=== PATIENT | female | born 1960 | race Caucasian/White ===

== ENCOUNTER 2023-08-07 15:40 | Emergency (ER) | payer OTHER, SELFPAY ==
[2023-08-07 15:41] VITALS: BP 201/110
[2023-08-07] MEDS: MOTRIN 600 MG PO (17:49)
[2023-08-07 18:12] LABS: % Eosinophils 3.9 % (0-6); % Immature Granulocytes 0.7 % (0-0.5); % Lymphocytes 21.1 % (20.5-51.1); % Monocytes 8.5 % (1.7-9.3); % Neutrophils 64.8 % (42.2-75.2); Absolute Basophils 0.1 10^3/uL (0-0.2); Absolute Eosinophils 0.3 10^3/uL (0-0.7); Absolute Immature Granulocytes 0.1 10^3/uL (0-0.05); Absolute Lymphocytes 1.4 10^3/uL (1.2-3.4); Absolute Monocytes 0.6 10^3/uL (0.1-0.6); Absolute Neutrophils 4.4 10^3/uL (1.4-6.5); Hematocrit 36.3 % (37.0-47.0); Hemoglobin 13.5 g/dL (12.0-16.0); Mean Corp Hgb Conc. 37.2 g/dL (33.0-37.0); Mean Corpuscular Hgb 33.5 pg (27.0-31.0); Mean Corpuscular Volume 90.1 fL (81.0-99.0); Nucleated Red Blood Cells % 0 %; Red Blood Cell Count 4.03 10^6/uL (4.20-5.40); Red Cell Dist. Width 12.5 % (11.5-14.5); White Blood Cell Count 6.7 10^3/uL (4.8-10.8)
[2023-08-07 18:17] VITALS: BP 168/100
[2023-08-07 18:20] LABS: ALT (SGPT) 15 U/L (0-35); AST (SGOT) 28 U/L (14-36); Albumin 4.5 g/dl (3.5-5.0); Alkaline Phosphatase 107 U/L (38-126); Blood Urea Nitrogen 19 mg/dl (7-17); Calcium 9.8 mg/dl (8.4-10.2); Carbon Dioxide 22 mmol/L (22-30); Chloride 103 mmol/L (98-107); Glucose 119 mg/dl (70-99); Potassium 3.9 mmol/L (3.5-5.1); Sodium 136 mmol/L (135-145); Total Bilirubin 0.6 mg/dl (0.2-1.3); Total Protein 7.3 g/dl (6.3-8.2); eGFR > 60.00
[2023-08-07 18:28] LABS: Mean Platelet Volume 9.4 fL (7.4-10.4); Platelet Count 247 10^3/uL (130-400)
[2023-08-07] MEDS: NORVASC 5 MG PO (18:33)
[2023-08-07 19:11] VITALS: BP 169/97
--- NOTE | 2023-08-07 20:08 | ED.GENMED ---
History of Present Illness
General
Chief Complaint: Blood Pressure Problem
Source: patient
Exam Limitations: none
Time Seen by Provider: 08/07/23 17:26
Nursing documentation reviewed up to this point in time: agreed with
Travel History
Have you had any contact with someone who has COVID-19?: No
Do you have any symptoms of coronavirus? Fever > 100 degrees, chills, cough, shortness of breath, sore throat, loss of taste or smell, muscle aches, or headache?: No
History of Present Illness
History of Present Illness:
Patient to ED for eval of elevated BP. States she was seenn at for wrist injury (fell 2 days ago). Sent to ED for elevated BP reading. Patient states she has had elevated readings for the past year. Requesting medication. No headache,
dizziness, blurred vision. Brought self to ED for eval.
Past History
Past History
ED Past Medical History: COPD, HTN and Other (Hep C Clavical fracture)
ED Past Surgical History: None, (X 3) and Orthopedic
Social History
Tobacco: Smoker
Alcohol: None
Personal:
Living: alone
Review of Systems
Review of Systems
Allergies reviewed?: Yes
All Other Systems: ROS reviewed and negative except as documented in HPI and ROS
Constitutional: Reports no symptoms
EENT: Reports no symptoms
Respiratory: Reports no symptoms
Cardiac: Reports no symptoms
ABD/GI: Reports no symptoms
Musculoskeletal: Reports other (recent diagnosis of left wrist fx. splint intact.)
Skin: Reports no symptoms
Neurological: Reports no symptoms
Psychiatric: Reports no symptoms
Phy Exam
General Physical Exam
General Presentation: well appearing and no apparent distress
General age: appears stated age
General Skin: warm and dry
General Habitus: normal
General Mental: alert
General Hydration: appears well hydrated
Cardiovascular Exam
Cardiovascular Exam: regular rate/rhythm and no edema
Pulmonary Exam
Pulmonary Exam: lungs clear and no respiratory distress
Musculoskeletal Exam
Musculoskeletal Exam: full ROM and neuro vasc intact
Skin Exam
Skin Exam: normal color, warm/dry and no rash
Psychiatric Exam
Psychiatric Exam: normal mood/affect
Course
Orders/Labs/Results
Orders:
Orders
08/07/23 17:41
Ibuprofen [Motrin] 600 mg PO NOW STA
08/07/23 17:55
Complete Blood Count/With Diff Urgent
Comprehensive Metabolic Panel Urgent
08/07/23 18:27
Amlodipine [Norvasc] 5 mg PO NOW STA
Abnormal Lab Results
08/07/23
17:55
RBC 4.03 L 10^6/uL
(4.20-5.40)
Hct 36.3 L %
(37.0-47.0)
MCH 33.5 H pg
(27.0-31.0)
MCHC 37.2 H g/dL
(33.0-37.0)
Abs Immat Gran (auto) 0.1 H 10^3/uL
(0-0.05)
Immature Gran % 0.7 H %
(0-0.5)
BUN 19 H mg/dl
(7-17)
Glucose 119 H mg/dl
(70-99)
08/07/23 17:55
08/07/23 17:55
Vital Signs
Initial and Last Documented VS:
Initial Vital Signs
Temp Pulse Resp BP Pulse Ox
98.9 F 78 20 201/110 96
08/07/23 15:41 08/07/23 15:41 08/07/23 15:41 08/07/23 15:41 08/07/23 15:41
Last Documented Vital Signs
Temp Pulse Resp BP Pulse Ox
98.9 F 73 18 169/97 96
08/07/23 15:41 08/07/23 19:11 08/07/23 19:11 08/07/23 19:11 08/07/23 19:11
*Critical Care Note
Total Time (30-74mins, 75-104mins- exclusive of procedures): Not Applicable
Update Note
Update Note:
BP readings with diastolic consistently over 100 while in ED. SHe denies any pain during visit. Given ibuprofen on arrival for her wrist injury. Patient requesting medication at this time. Will start low dose norvasc. Request close follow up
iwth PCP which she agrees. Given parameters to hold medication and she is agreeable to this also.
ED Attending Note
-
Portions of this chart may have been created with voice recognition software.� Occasional wrong word or��sound alike� substitutions may have occurred due to the inherent limitations of voice recognition software.
Discharge Plan
Departure
Patient Disposition: Home (Routine Discharge)
Date of Disposition: 08/07/23
Time of Disposition: 18:29
Patient with high blood pressure during this ER visit?: No
Condition: Good
Covid-19: Not Applicable
Discharge Problem:
HTN (hypertension)
Instructions: High Blood Pressure (DC)
Prescriptions:
New
amlodipine [Norvasc] 5 mg tablet
5 mg PO DAILY Qty: 30 0RF
No Action
methadone [Methadose] 100 MG/10 ML concentrate
98 mg PO DAILY
Patient Comments:
Verified with Sue 12/14 by RN
98 mg po daily until 12/17
96 mg po daily starting 12/18
On a taper
ibuprofen-diphenhydramine cit [Advil PM] 1 TAB tablet
1 tab PO HS
umeclidinium-vilanterol [Anoro Ellipta] 1 EACH blister with device
1 puff inhalation R DAILY
dupilumab [Dupixent Syringe] 300 MG/2 ML syringe
300 mg SQ Q14D
ascorbic acid (vitamin C) 250 MG tablet
250 mg PO DAILY
cholecalciferol (vitamin D3) [Vitamin D3] 400 UNITS tablet
400 units PO DAILY
sodqoifvhnvq-zudf-txwie acid [Centrum] 1 EACH tablet
1 ea PO DAILY
polyethylene glycol 3350 17 GRAMS powder in packet
17 grams PO DAILY 14 Days Qty: 14 0RF
Rx Instructions:
Hold if more than 2 loose bowel movements
docusate sodium [Colace] 100 MG capsule
100 mg PO BID 7 Days Qty: 14 0RF
cefuroxime axetil 500 MG tablet
500 mg PO BID 5 Days Qty: 10 0RF
Referrals:
Gen Galarza MD [Family Provider] - Follow up in 2-3 days
Activity Restrictions/Additional Instructions:
HOld Norvasc for BP less than 120/80
Interventions
Interventions:
*Risk Screen - Suicide Last Done: 08/07/23 15:53
*General Assessment Last Done: 08/07/23 15:53
*Neglect/Abuse Screening Last Done: 08/07/23 15:53
*Nursing Disposition Last Done: 08/07/23 19:11
ED- Cardiac Assessment Last Done: 08/07/23 18:17
ED- Neurological Assessment Last Done: 08/07/23 18:17
ED- Pulmonary Assessment Last Done: 08/07/23 18:17
Discharge Date and Time
Discharge Date/Time: 08/07/23 19:14
Print Language: THAI
== END 2023-08-07 19:14 | disposition home or self-care (01) ==
LOC: EMR 15:40
PROVIDERS: Nurse Practitioner; EMERGENCY PHYSICIAN Emergency Medicine; FAMILY PHYSICIAN Internal Medicine
DX: I10 Essential (primary) hypertension (principal); F17.200 Nicotine dependence, unspecified, uncomplicated
CPT/HCPCS: 99283; 80053; 85025

== ENCOUNTER 2024-10-03 10:08 | Emergency (ER) | payer OTHER, SELFPAY ==
[2024-10-03 10:22] VITALS: BP 118/71
[2024-10-03 10:57] LABS: Hematocrit 36.1 % (37.0-47.0); Hemoglobin 12.5 g/dL (12.0-16.0); Mean Corp Hgb Conc. 34.6 g/dL (33.0-37.0); Mean Corpuscular Volume 90.5 fL (81.0-99.0); Nucleated Red Blood Cells % 0 %; Platelet Count 220 10^3/uL (130-400); Red Cell Dist. Width 12.4 % (11.5-14.5)
[2024-10-03 10:58] LABS: Urine Character Clear (Clear)
[2024-10-03 11:09] LABS: Urine Squamous Cell 0-2 /LPF (Few)
[2024-10-03 11:11] LABS: Urine Red Blood Cell 30-40 /HPF (0-2)
[2024-10-03 11:16] LABS: ALT (SGPT) 12 U/L (0-35); AST (SGOT) 24 U/L (14-36); Albumin 4.4 g/dl (3.5-5.0); Alkaline Phosphatase 82 U/L (38-126); Blood Urea Nitrogen 22 mg/dl (7-17); Calcium 9.4 mg/dl (8.4-10.2); Carbon Dioxide 19 mmol/L (22-30); Chloride 106 mmol/L (98-107); Glucose 100 mg/dl (70-99); Potassium 4.5 mmol/L (3.5-5.1); Sodium 136 mmol/L (135-145); Total Protein 7.3 g/dl (6.3-8.2); eGFR 50.23
[2024-10-03 13:13] VITALS: BMI 26.3
[2024-10-03] MEDS: NSS 1000 IV (13:43)
--- NOTE | 2024-10-03 13:48 | ED.GENMED ---
History of Present Illness
General
Chief Complaint: Urinary Symptoms
Source: patient
Exam Limitations: none
Time Seen by Provider: 10/03/24 12:26
Nursing documentation reviewed up to this point in time: agreed with
History of Present Illness
History of Present Illness:
64-year-old female presenting with persistent left lower back pain and urinary frequency for the past five days. Patient states she initially noticed urinary frequency last and had aching in her lower back. Symptoms persisted and she sought
care at an urgent care on Wednesday where she apparently had a low-grade temperature of 100.9. She states that her urinalysis obtained at urgent care was �inconclusive �. However � they did start her on a course of Augmentin, which she has been
taking twice a day.
Patient states symptoms have not gotten any worse and possibly marginally improved however she still notices frequency and some lower back pain.
She does not believe she has had any other fevers. She denies chills, nausea or vomiting, diarrhea/constipation. No chest pain or shortness of breath.
She has not noticed any hematuria. No recent viral illnesses.
Past History
Past History
ED Past Medical History: COPD, HTN and Other (Hep C Clavical fracture)
ED Past Surgical History: None, (X 3) and Orthopedic
Social History
Tobacco: Smoker
Alcohol: None
Personal:
Living: alone
Review of Systems
Review of Systems
Allergies reviewed?: Yes
All Other Systems: ROS reviewed and negative except as documented in HPI and ROS
Phy Exam
Physical Exam
Physical Exam:
Vitals: Patient's vital signs are stable. Afebrile
General: Patient is well appearing, no acute distress
Skin: Warm and dry, no rashes or lesions
Head: Normocephalic, atraumatic
Eyes: Sclera nonicteric.
Throat: Protecting airway
Neck: Normal ROM, no cervical spine tenderness, no meningismus
Cardiac: Regular rate and rhythm, no murmurs.
Pulm: Normal respiratory effort, no wheezes, rales, rhonchi heard on exam
.
Abdomen: Abdomen soft. Mild tenderness in left mid abdomen. No rebound tenderness or guarding.
Extremities: No evidence of cyanosis or edema. 2+ DP pulses palpable bilaterally.
Neuro: AAOx3. Grossly intact
Psychiatric: Normal affect.
Course
Orders/Labs/Results
Orders:
Orders
10/03/24 10:40
CBC/With Diff [Complete Blood Count/With Diff] Urgent
Comprehensive Metabolic Panel Urgent
Urinalysis Reflex To Culture Urgent
Date Specimen was Collected: 10/03/24
Time Specimen was Collected: 10:25
Urine Microscopic Reflex Cult Urgent
Urine Culture Urgent
LUDY Source: U
Specimen Description:
Obtained by: Random
Date Specimen was Collected: 10/03/24
Time Specimen was Collected: 10:25
10/03/24 12:50
CT Abd/pelvis W Iv Cont Urgent
Comment:
Reason For Exam: L flank pain
0.9% Sodium Chloride 1000 ml [Nss] 1,000 ml IV BOLUS
Abnormal Lab Results
10/03/24
10:40
RBC 3.99 L 10^6/uL
(4.20-5.40)
Hct 36.1 L %
(37.0-47.0)
MCH 31.3 H pg
(27.0-31.0)
Absolute Monos (auto) 1.5 H 10^3/uL
(0.1-0.6)
Lymphocytes % 19.0 L %
(20.5-51.1)
Monocytes % 16.7 H %
(1.7-9.3)
Carbon Dioxide 19 L mmol/L
(22-30)
BUN 22 H mg/dl
(7-17)
Creatinine 1.2 H mg/dL
(0.6-1.0)
Glucose 100 H mg/dl
(70-99)
Ur Occult Blood Reflex 4+ A
(Negative)
Leukocyte Esterase Rfl 1+ A
(Negative)
Urine RBC 30-40 A /HPF
(0-2)
Urine Bacteria (Reflex) Many A
(Negative)
Urine Albumin (Reflex) 2+ A
(Neg - Trace)
10/03/24 10:40
10/03/24 10:40
Vital Signs
Initial and Last Documented VS:
Initial Vital Signs
Temp Pulse Resp BP Pulse Ox
98.9 F 78 16 118/71 95
10/03/24 10:22 10/03/24 10:22 10/03/24 10:22 10/03/24 10:22 10/03/24 10:22
Last Documented Vital Signs
Temp Pulse Resp BP Pulse Ox
98.9 F 64 16 112/68 97
10/03/24 10:22 10/03/24 15:48 10/03/24 15:48 10/03/24 15:48 10/03/24 15:48
MDM/Problems Addressed
Differential Diagnosis Includes:
Not limited to: cystitis, pyelonephritis, renal abscess, nephrolithiasis, diverticulitis, etc
MDM/Problems Addressed:
64 year-old female with five days of persistent urinary frequency/left lower back pain currently on antibiotics. No current fever, chills, hematuria. Patient has stable vital signs and is afebrile on arrival. Physical exam as above. Differential
broad and include cystitis or pyelonephritis not completely improved on current course of oral antibiotics. Other considerations would be nephrolithiasis or diverticulitis. ED plan: labs, UA, CT scan abdomen/pelvis. Will give IV fluids and reassess.
Update: labs reviewed. No clinically significant abnormalities on CBC. No leukocytosis. Chemistry reveals mild renal insufficiency without any recent past comparison. Urine shows RBCs and many bacteria. CT scan pending.
Update: CT scan reveals findings consistent with possibly focal area of left sided pyelonephritis No evidence obstructing calculus. Patient very well appearing, non-toxic. I did consider admission given patient has been on oral antibiotics for a few
days. However � given patient is currently afebrile, well appearing and nontoxic without leukocytosis and able to tolerate PO � feel discharge home w/ alternate oral antibiotic is a reasonable option. Patient would prefer discharge home at this
time. Will place patient on cefpodoxime pending cultures and instruct close outpatient follow up. Very strict return precautions discussed. Patient comfortable with plan.
Chronic conditions affecting care:
N/A
Acute Exacerbation and/or Progression of Chronic Illness:
N/A
*Radiology
Radiology exam reviewed: radiology read reviewed
*Pulse Oximetry
SaO2: 95
Oxygen Mode of Delivery: Room air
Patient hypoxic: no
*EKG
Interpreted by ED Provider?: NA
*Sueding And Buffing Machine Operator Interpretation
Rate: Sueding And Buffing Machine Operator- N/A
*Critical Care Note
Total Time (30-74mins, 75-104mins- exclusive of procedures): Not Applicable
Data Reviewed
Review of Other/Old Records Reveals: Testing (Prior urine cultures raya sensitive)
Source: previous hospital records
Patient Management
Escalation/DeEscalation of care consider admission/obs:
Considered admission although feel stable for discharge home on oral abx
ED Attending Note
-
Portions of this chart may have been created with voice recognition software.� Occasional wrong word or��sound alike� substitutions may have occurred due to the inherent limitations of voice recognition software.
Discharge Plan
Departure
Patient Disposition: Home (Routine Discharge)
Date of Disposition: 10/03/24
Time of Disposition: 15:33
Patient with high blood pressure during this ER visit?: Yes
Discharge Problem:
Acute pyelonephritis
Instructions: Urinary Tract Infection, Adult (DC), BLOOD PRESSURE
Prescriptions:
New
cefpodoxime 200 mg tablet
200 mg PO BID 10 Days Qty: 20 0RF
No Action
methadone [Methadose] 100 MG/10 ML concentrate
98 mg PO DAILY
Patient Comments:
Verified with Sue 12/14 by RN
98 mg po daily until 12/17
96 mg po daily starting 12/18
On a taper
ibuprofen-diphenhydramine cit [Advil PM] 1 TAB tablet
1 tab PO HS
umeclidinium-vilanterol [Anoro Ellipta] 1 EACH blister with device
1 puff inhalation R DAILY
dupilumab [Dupixent Syringe] 300 MG/2 ML syringe
300 mg SQ Q14D
ascorbic acid (vitamin C) 250 MG tablet
250 mg PO DAILY
cholecalciferol (vitamin D3) [Vitamin D3] 400 UNITS tablet
400 units PO DAILY
rojdvprjzzoo-gcka-gnchg acid [Centrum] 1 EACH tablet
1 ea PO DAILY
polyethylene glycol 3350 17 GRAMS powder in packet
17 grams PO DAILY 14 Days Qty: 14 0RF
Rx Instructions:
Hold if more than 2 loose bowel movements
docusate sodium [Colace] 100 MG capsule
100 mg PO BID 7 Days Qty: 14 0RF
cefuroxime axetil 500 MG tablet
500 mg PO BID 5 Days Qty: 10 0RF
amlodipine [Norvasc] 5 mg tablet
5 mg PO DAILY Qty: 30 0RF
Referrals:
Stephen Taylor Jr., MD [Active, Urology] - Call in 1-3 days for appt
Gen Galarza MD [Family Provider, Internal Medicine] - Follow up in 5-7 days
Activity Restrictions/Additional Instructions:
RETURN TO THE EMERGENCY DEPARTMENT ANY FEVER, CHILLS, PERSISTENT/WORSENING ABDOMINAL/BACK PAIN, INTRACTABLE NAUSEA/VOMITING, SIGNIFICANT WEAKNESS, WORSENING CURRENT SYMPTOMS, OR ANY OTHER CONCERNS
- As discussed�your CT scan showed findings consistent with a kidney infection on the left side. A prescription for new antibiotic has been sent to your pharmacy. Please take this twice a day for the next 10 days. You can discontinue the
amoxicillin/clavulanic acid
- It is important stay well-hydrated. You can take Tylenol as needed for pain. Your kidney function was mildly elevated today. Please have this repeated by your primary care to ensure it comes down.
- Follow-up with your primary care within a week for further evaluation and to ensure that symptoms are improving. Given your recurrent infections that you should also follow with a urologist
Monitor your symptoms very closely and return department with any acute worsening/new symptoms or any other concerns
Interventions
Interventions:
*Risk Screen - Suicide Last Done: 10/03/24 10:22
*General Assessment Last Done: 10/03/24 13:34
*Neglect/Abuse Screening Last Done: 10/03/24 10:22
*ED- Fall Risk Assessment Last Done: 10/03/24 13:34
*Nursing Disposition Last Done: 10/03/24 15:48
ED-Female Genitourinary Assessment Last Done: 10/03/24 13:34
Discharge Date and Time
Discharge Date/Time: 10/03/24 16:23
Print Language: QATARI
[2024-10-03 15:48] VITALS: BP 112/68
== END 2024-10-03 16:23 | disposition home or self-care (01) ==
LOC: EMR 10:08
PROVIDERS: Emergency Medicine; EMERGENCY PHYSICIAN Student in an Organized Health Care Education/Training Program; FAMILY PHYSICIAN Internal Medicine
DX: N10 Acute pyelonephritis (principal); M54.50 Low back pain, unspecified; J44.9 Chronic obstructive pulmonary disease, unspecified; I10 Essential (primary) hypertension; F17.200 Nicotine dependence, unspecified, uncomplicated
CPT/HCPCS: 96360; 96361; 99284; 74177; 80053; 81003; 81015; 85025; 87086; Q9967